=== PATIENT | male | born 1975 | race Caucasian/White ===

== ENCOUNTER 2018-12-27 08:35 | Inpatient (IN) | payer OTHER ==
[2018-12-27 09:24] VITALS: BMI 26.4
--- NOTE | 2018-12-27 10:21 | HP ---
CIWA Score Nausea/Vomitin Muscle Tremors: 2 Anxiety: 2 Agitation: 2 Paroxysmal Sweats: 1-Minimal Palms Moist Orientation: 0-Oriented Tacttile Disturbances: 1-Very Mild Itch/Numbness Auditory Disturbances: 1-Very Mild Visual Disturbances: 0-None Headache: 2-Mild CIWA-Ar Total Score: 13 - Admission Criteria OASAS Guidelines: Admission for Medically Managed Detox: Requires at least one of the followin. CIWA greater than 12 2. Seizures within the past 24 hours 3. Delirium tremens within the past 24 hours 4. Hallucinations within the past 24 hours 5. Acute intervention needed for co occurring medical disorder 6. Acute intervention needed for co occurring psychiatric disorder 7. Severe withdrawal that cannot be handled at a lower level of care (continued vomiting, continued diarrhea, abnormal vital signs) requiring intravenous medication and/or fluids 8. Admission ROS BHS - HPI Chief Complaint: i need help to stop drinking alcohol Allergies/Adverse Reactions: Allergies Allergy/AdvReac Type Severity Reaction Status Date / Time No Known Allergies Allergy Verified 12/27/18 09:14 History of Present Illness: this 43 years old male with alcohol dependence,seeking detox, multiple admissions in detox,last [facility] 04 a9 complete mmtp 70 mgs/day last 6 months last medicated yesterday syncope insomnia 100 mgs po hs fo insomnia seen in [place] last night has iv no significant period nicotine dependence 1/2 pack day,requesting nicotine path and gum replacement plan for out patient program,back to work,aa meeting Exam Limitations: No Limitations - Ebola screening Have you traveled outside of the country in the last 21 days: No Have you had contact with anyone from an Ebola affected area: No - Review of Systems Constitutional: Loss of Appetite, Malaise, Night Sweats, Changes in sleep, Weakness EENT: reports: No Symptoms Reported, Nose Congestion Respiratory: reports: No Symptoms reported GI: reports: Diarrhea, Nausea, Vomiting, Abdominal cramping : reports: No Symptoms Reported Musculoskeletal: reports: Back Pain, Muscle Pain Integumentary: reports: Dryness Neuro: reports: Headache, Tremors Endocrine: reports: No Symptoms Reported Hematology: reports: No Symptoms Reported Psychiatric: reports: No Sypmtoms Reported, Judgement Intact, Mood/Affect Appropiate, Orientated x3 Other Systems: Reviewed and Negative Patient History - Patient Medical History Hx Anemia: No Hx Asthma: No Hx Chronic Obstructive Pulmonary Disease (COPD): No Hx Cancer: No Hx Cardiac Disorders: No Hx Congestive Heart Failure: No Hx Hypertension: No Hx Hypercholesterolemia: No Hx Pacemaker: No HX Cerebrovascular Accident: No Hx Seizures: No Hx Dementia: No Hx Diabetes: No Hx Gastrointestinal Disorders: No Hx Liver Disease: No Hx Genitourinary Disorders: No Hx Sexually Transmitted Disorders: No Hx Renal Disease (ESRD): No Hx Thyroid Disease: No Hx Human Immunodeficiency Virus (HIV): No (last 11/12 negative) Hx Hepatitis C: No Hx Depression: No Hx Suicide Attempt: No Hx Bipolar Disorder: No Hx Schizophrenia: No Other Medical History: no suiidal,no homicidal,insonia - PPD History Previous Implant?: Yes Documented Results: Negative w/o proof Implanted On Prior [facility] Admission?: No PPD to be Administered?: Yes - Smoking Cessation Smoking history: Current every day smoker Have you smoked in the past 12 months: Yes Aproximately how many cigarettes per day: 10 Cigars Per Day: 0 Hx Chewing Tobacco Use: No Initiated information on smoking cessation: Yes 'Breaking Loose' booklet given: 12/27/18 - Substance & Tx. History Hx Alcohol Use: Yes Hx Substance Use: No Substance Use Type: Alcohol Hx Substance Use Treatment: No - Substances abused Alcohol Substance route: Oral Frequency: Daily Amount used: 3 pints of vodka Age of first use: 30 Date of last use: 12/26/18 Family Disease History - Family Disease History Family History: Denies Admission Physical Exam BHS - Vital Signs Vital Signs: Vital Signs - 24 hr 12/27/18 09:16 Temperature 98.1 F Pulse Rate 85 Respiratory 16 Rate Blood Pressure 131/85 - Physical General Appearance: Yes: Moderate Distress, Tremorous, Irritable, Sweating, Anxious HEENTM: Yes: Normal ENT Inspection, CARLOS, Pharynx Normal Respiratory: Yes: Lungs Clear, Normal Breath Sounds, No Respiratory Distress Neck: Yes: Within Normal Limits, Supple, Trachea in good position Breast: Yes: Within Normal Limits Cardiology: Yes: Regular Rate, S1, S2 Abdominal: Yes: Within Normal Limits, Normal Bowel Sounds, Non Tender, Flat, Soft Genitourinary: Yes: Within Normal Limits Back: Yes: Muscle Spasm Musculoskeletal: Yes: full range of Motion, Back pain, Muscle Pain Extremities: Yes: Tremors Neurological: Yes: haul driver II-XII NML intact, Fully Oriented, Alert, Motor Strength 5/5 Integumentary: Yes: Dry Lymphatic: Yes: Within Normal Limits - Diagnostic (1) Alcohol dependence with uncomplicated withdrawal Current Visit: Yes Status: Acute (2) Methadone maintenance therapy patient Current Visit: Yes Status: Acute (3) Syncope Current Visit: Yes Status: Acute (4) Insomnia Current Visit: Yes Status: Acute (5) Nicotine dependence Current Visit: Yes Status: Acute Cleared for Admission S - Detox or Rehab [facility] Level of Care: Medically Managed Detox Regimen/Protocol: Librium Breathalyzer - Breathalyzer Breathalyzer: 0.201 Urine Drug Screen - Test Device Lot number: [id number] Expiration date: 09/23/20 - Control Is test valid?: Yes - Results Drug screen NEGATIVE: No Urine drug screen results: THC-Marijuana, MTD-Methadone Inpatient Rehab Admission - Rehab Decision to Admit Inpatient rehab admission?: No
[2018-12-27] MEDS ORDERED: MELATONIN 5 MG TABLETS PO PRN (10:28)
[2018-12-27] MEDS ORDERED: MAGNESIUM HYDROX 2400MG/30ML ORAL SUSPENSION 30 ML CUP PO PRN (10:28)
[2018-12-27] MEDS ORDERED: MENTHOL/PHENOL 1 EACH UD MM PRN (10:28)
[2018-12-27] MEDS ORDERED: BISMUTH SUBSALICYLATE 524 MG/30 ML UD PO PRN (10:28)
[2018-12-27] MEDS ORDERED: IBUPROFEN 400 MG TABLET (FP) PO PRN (10:28)
[2018-12-27] MEDS ORDERED: MAGNESIUM CITRATE 300 ML BOTTLE PO PRN (10:28)
[2018-12-27] MEDS ORDERED: MAG HYDROX/AL HYDROX/SIMETH 30 ML UNIT-DOSE CUP PO PRN (10:28)
[2018-12-27] MEDS ORDERED: NICOTINE POLACRILEX 2 MG GUM BUC PRN (10:28)
[2018-12-27] MEDS ORDERED: ACETAMINOPHEN 325 MG TABLET (FP) PO PRN ×2 (10:28)
[2018-12-27] MEDS ORDERED: METHADONE HCL 10 MG TABLET PO ONE (10:34)
[2018-12-27] MEDS ORDERED: METHADONE 40 MG, METHADONE 30 MG PO ONE (11:00)
[2018-12-27] MEDS ORDERED: METHADONE HCL 10 MG TABLET ONE (11:17)
[2018-12-27] MEDS ORDERED: METHADONE HCL 40 MG DISPERSABLE TABLET ONE (11:18)
[2018-12-27] MEDS: chlordiazePOXIDE HCL 25 MG CAPSULE PO SCH ×3 (11:22→22:06)
[2018-12-27] MEDS: NICOTINE 21 MG/24 HOURS TOPICAL PATCH TD SCH (11:23)
[2018-12-27 12:05] LABS: ALBUMIN 3.6 g/dl (3.4-5.0); BILIRUBIN,TOTAL 0.9 mg/dL (0.2-1); CALCIUM 8.3 mg/dL (8.5-10.1); CREATININE 0.5 mg/dL (0.55-1.3); POTASSIUM 5.4 mmol/L (3.5-5.1); TOT PROT 6.9 g/dl (6.4-8.2)
[2018-12-27 12:16] LABS: HEMATOCRIT 39.2 % (35.4-49); MCH 32.9 pg (25.7-33.7); MCHC 33.3 g/dl (32.0-35.9); MEAN CELL VOLUME 98.8 fl (80-96); MEAN PLT VOLUME 9.1 fl (7.5-11.1); RBC 3.96 M/mm3 (4.00-5.60); RDW 15.1 % (11.9-15.9)
[2018-12-27 14:02] LABS: PLATELET COUNT 39 K/MM3 (134-434)
[2018-12-27] MEDS: METHOCARBAMOL 500 MG TABLET PO PRN (15:00)
[2018-12-27] MEDS: hydrOXYzine PAMOATE 25 MG CAPSULE (FP) PO PRN (15:00)
[2018-12-27] MEDS: chlordiazePOXIDE HCL 25 MG CAPSULE PO PRN (15:00)
[2018-12-27] MEDS: traZODone HCL 100 MG TABLET (FP) PO SCH (22:06)
[2018-12-27] MEDS: THIAMINE HCL 100 MG TABLET (FP) PO SCH (22:06)
[2018-12-28] MEDS ORDERED: METHADONE HCL 40 MG DISPERSABLE TABLET ONE (04:04)
[2018-12-28] MEDS ORDERED: METHADONE HCL 10 MG TABLET ONE (04:04)
[2018-12-28] MEDS: METHADONE 40 MG, METHADONE 30 MG PO SCH (05:41)
[2018-12-28] MEDS: chlordiazePOXIDE HCL 25 MG CAPSULE PO SCH ×4 (05:42→22:01)
[2018-12-28] MEDS ORDERED: METHADONE HCL 10 MG TABLET PO SCH (06:00)
[2018-12-28] MEDS: PRENATAL VITAMINS W/ FOLIC ACID TABLET (FP) PO SCH (10:14)
[2018-12-28] MEDS: METHOCARBAMOL 500 MG TABLET PO PRN (10:15)
[2018-12-28] MEDS: NICOTINE 21 MG/24 HOURS TOPICAL PATCH TD SCH (10:16)
--- NOTE | 2018-12-28 10:25 | PN ---
S CIWA - CIWA Score Nausea/Vomitin Muscle Tremors: 2 Anxiety: 2 Agitation: 2 Paroxysmal Sweats: 1-Minimal Palms Moist Orientation: 0-Oriented Tacttile Disturbances: 1-Very Mild Itch/Numbness Auditory Disturbances: 1-Very Mild Visual Disturbances: 0-None Headache: 2-Mild CIWA-Ar Total Score: 13 [facility] Progress Note (SOAP) Subjective: alert,irritable,anxious,interrupted sleep,tremor Objective: 12/28/18 10:24 Vital Signs Temperature 97.4 F L 12/28/18 09:22 Pulse Rate 99 H 12/28/18 09:22 Respiratory Rate 18 12/28/18 09:22 Blood Pressure 138/88 12/28/18 09:22 O2 Sat by Pulse Oximetry (%) Laboratory Last Values WBC 4.0 K/mm3 (4.0-10.0) 12/27/18 10:45 RBC 3.96 M/mm3 (4.00-5.60) L 12/27/18 10:45 Hgb 13.0 GM/dL (11.7-16.9) 12/27/18 10:45 Hct 39.2 % (35.4-49) 12/27/18 10:45 MCV 98.8 fl (80-96) H 12/27/18 10:45 MCH 32.9 pg (25.7-33.7) 12/27/18 10:45 MCHC 33.3 g/dl (32.0-35.9) 12/27/18 10:45 RDW 15.1 % (11.9-15.9) 12/27/18 10:45 Plt Count 39 K/MM3 (134-434) L 12/27/18 10:45 MPV 9.1 fl (7.5-11.1) 12/27/18 10:45 Sodium 139 mmol/L (136-145) 12/27/18 10:45 Potassium 5.4 mmol/L (3.5-5.1) H 12/27/18 10:45 Chloride 104 mmol/L (98-107) 12/27/18 10:45 Carbon Dioxide 25 mmol/L (21-32) 12/27/18 10:45 Anion Gap 11 MMOL/L (8-16) 12/27/18 10:45 BUN 14 mg/dL (7-18) 12/27/18 10:45 Creatinine 0.5 mg/dL (0.55-1.3) L 12/27/18 10:45 Est GFR (CKD-EPI)AfAm 152.75 12/27/18 10:45 Est GFR (CKD-EPI)NonAf 131.80 12/27/18 10:45 Random Glucose 85 mg/dL (74-106) 12/27/18 10:45 Calcium 8.3 mg/dL (8.5-10.1) L 12/27/18 10:45 Total Bilirubin 0.9 mg/dL (0.2-1) 12/27/18 10:45 AST 133 U/L (15-37) H 12/27/18 10:45 ALT 59 U/L (13-61) 12/27/18 10:45 Alkaline Phosphatase 179 U/L (45-117) H 12/27/18 10:45 Total Protein 6.9 g/dl (6.4-8.2) 12/27/18 10:45 Albumin 3.6 g/dl (3.4-5.0) 12/27/18 10:45 RPR Titer Nonreactive (NONREACTIVE) 12/27/18 10:45 Assessment: 12/28/18 10:25 withdrawal symptom Plan: continue detox
--- NOTE | 2018-12-28 12:05 | EKG ---
Test Reason : Blood Pressure : / mmHG Vent. Rate : 065 BPM Atrial Rate : 065 BPM P-R Int : 152 ms QRS Dur : 096 ms QT Int : 468 ms P-R-T Axes : 267 026 041 degrees QTc Int : 486 ms UNUSUAL P AXIS, POSSIBLE ECTOPIC ATRIAL RHYTHM POSSIBLE ANTERIOR INFARCT , AGE UNDETERMINED ABNORMAL ECG NO PREVIOUS ECGS AVAILABLE Confirmed by Manny Rudolph MD ([id number]) on 12/28/2018 12:04:31 PM Referred By: Confirmed By:Manny Rudolph MD
[2018-12-28] MEDS: chlordiazePOXIDE HCL 25 MG CAPSULE PO PRN ×2 (14:27→18:45)
[2018-12-28] MEDS: hydrOXYzine PAMOATE 25 MG CAPSULE (FP) PO PRN (18:44)
[2018-12-28] MEDS: traZODone HCL 100 MG TABLET (FP) PO SCH (22:01)
[2018-12-28] MEDS: THIAMINE HCL 100 MG TABLET (FP) PO SCH (22:02)
[2018-12-29] MEDS ORDERED: METHADONE HCL 40 MG DISPERSABLE TABLET ONE (05:54)
[2018-12-29] MEDS ORDERED: METHADONE HCL 10 MG TABLET ONE (05:54)
[2018-12-29] MEDS: METHADONE 40 MG, METHADONE 30 MG PO SCH (06:33)
[2018-12-29] MEDS: chlordiazePOXIDE HCL 25 MG CAPSULE PO SCH (06:36)
[2018-12-29 09:26] VITALS: BP 128/82; PULSE 112; TEMP 98.9
[2018-12-29] MEDS: NICOTINE 21 MG/24 HOURS TOPICAL PATCH TD SCH (10:26)
[2018-12-29] MEDS: PRENATAL VITAMINS W/ FOLIC ACID TABLET (FP) PO SCH (10:27)
[2018-12-29] MEDS: chlordiazePOXIDE HCL 25 MG CAPSULE PO PRN (10:30)
[2018-12-29] MEDS ORDERED: chlordiazePOXIDE HCL 10 MG CAPSULE PO PRN (11:00)
[2018-12-29] MEDS ORDERED: chlordiazePOXIDE HCL 10 MG CAPSULE PO SCH (11:00)
--- NOTE | 2018-12-29 16:43 | PN ---
[facility] CIWA - CIWA Score Nausea/Vomitin-No Nausea/No Vomiting Muscle Tremors: 2 Anxiety: 4-Mod. Anxious/Guarded Agitation: 2 Paroxysmal Sweats: 3 Orientation: 0-Oriented Tacttile Disturbances: 2-Mild Itch/Numbness/Burn Auditory Disturbances: 0-None Visual Disturbances: 0-None Headache: 0-None Present CIWA-Ar Total Score: 13 [facility] Progress Note (SOAP) Subjective: Anxious, Tremors, Sweating. Objective: PATIENT A & O X 3, OBSERVED AMBULATING ON UNIT UNASSISTED. IN NO ACUTE DISTRESS. 12/29/18 16:39 Vital Signs Temperature 98.9 F 12/29/18 09:25 Pulse Rate 112 H 12/29/18 09:25 Respiratory Rate 18 12/29/18 09:25 Blood Pressure 128/82 12/29/18 09:25 O2 Sat by Pulse Oximetry (%) Laboratory Tests 12/27/18 12/27/18 12/27/18 10:45 10:45 10:45 WBC 4.0 RBC 3.96 L Hgb 13.0 Hct 39.2 MCV 98.8 H MCH 32.9 MCHC 33.3 RDW 15.1 Plt Count 39 L MPV 9.1 Sodium 139 Potassium 5.4 H Chloride 104 Carbon Dioxide 25 Anion Gap 11 BUN 14 Creatinine 0.5 L Est GFR (CKD-EPI)AfAm 152.75 Est GFR (CKD-EPI)NonAf 131.80 Random Glucose 85 Calcium 8.3 L Total Bilirubin 0.9 AST 133 H ALT 59 Alkaline Phosphatase 179 H Total Protein 6.9 Albumin 3.6 RPR Titer Nonreactive LABS NOTED. Assessment: 12/29/18 16:39 WITHDRAWAL SYMPTOMS. HYPERKALEMIA. ELEVATED AST AND ALKALINE PHOSPHATASE LEVELS. THROMBOCYTOPENIA. 12/29/18 16:41 Plan: CONTINUE DETOX. K, AST, AN AP LEVELS WOULD HAVE BEEN RECHECKED. HOWEVER, PATIENT ELECTED TO LEAVE DETOX UNIT AGAINST MEDICAL ADVICE DUE TO FAMILY EMERGENCY. SEE FOLLOWING [facility] DETOX DISCHARGE SUMMARY.
--- NOTE | 2018-12-29 16:49 | DS ---
[facility] Detox Discharge Summary Admission Date: 12/27/18 Discharge Date: 12/29/18 - History Present History: Alcohol Dependence, Opioid Dependence, MMTP Additional Comments: PATIENT REPORTS A FAMILY EMERGENCY AND THAT HE DOES NOT WISH TO REMAIN TO COMPLETE DETOX REGIMEN. RISKS OF LEAVING DETOX UNIT AGAINST MEDICAL ADVICE AND PRIOR TO COMPLETION OF DETOX REGIMEN EXPLAINED TO PATIENT. PATIENT ADVISED TO GO IMMEDIATELY TO NEAREST ER SHOULD ANY INTOLERABLE WITHDRAWAL / DETOX SYMPTOMS DEVELOP AT ANY TIME. PATIENT ADVISED TO FOLLOW-UP WITH [facility] WORKROOM CLERK AFTER DISCHARGE FROM DETOX FOR GENERAL MEDICAL ASSESSMENT AND LOW PLATELET LEVEL, FOR ELEVATED POTASSIUM LEVEL AND FOR ELEVATED LIVER ENZYMES NOTED ON DETOX ADMISSION LABORATORY ASSESSMENT. COPIES OF RESULTS OF ALL LABS DRAWN WHILE ADMITTED FOR DETOX GIVEN TO PATIENT AT TIME OF DISCHARGE FROM DETOX UNIT. PATIENT VERBALIZED UNDERSTANDING OF ALL INFORMATION / RECOMMENDATIONS PRESENTED TO HIM PRIOR TO DEPARTURE FROM DETOX UNIT. PATIENT LEFT DETOX UNIT IN STABLE MEDICAL CONDITION. Pertinent Past History: M.M.T.P., History Of Syncope, Insomnia, Nicotine Dependence, Hyperkalemia ( Noted On Detox Admission Laboratory Assessment), Thrombocytopenia (Noted On Detox Admission Laboratory Assessment), Elevated AST and Alkaline Phosphatase Levels (Noted On Detox Admission Laboratory Assessment). - Physical Exam Results Vital Signs: Vital Signs Temperature 98.9 F 12/29/18 09:25 Pulse Rate 112 H 12/29/18 09:25 Respiratory Rate 18 12/29/18 09:25 Blood Pressure 128/82 12/29/18 09:25 O2 Sat by Pulse Oximetry (%) Pertinent Admission Physical Exam Findings: WITHDRAWAL SYMPTOMS. Laboratory Tests 12/27/18 12/27/18 12/27/18 10:45 10:45 10:45 WBC 4.0 RBC 3.96 L Hgb 13.0 Hct 39.2 MCV 98.8 H MCH 32.9 MCHC 33.3 RDW 15.1 Plt Count 39 L MPV 9.1 Sodium 139 Potassium 5.4 H Chloride 104 Carbon Dioxide 25 Anion Gap 11 BUN 14 Creatinine 0.5 L Est GFR (CKD-EPI)AfAm 152.75 Est GFR (CKD-EPI)NonAf 131.80 Random Glucose 85 Calcium 8.3 L Total Bilirubin 0.9 AST 133 H ALT 59 Alkaline Phosphatase 179 H Total Protein 6.9 Albumin 3.6 RPR Titer Nonreactive LABS NOTED. - Treatment Hospital Course: Detox Protocol Followed, Detoxed Safely - Diagnosis (1) Elevated alkaline phosphatase level Status: Acute (2) Elevated aspartate aminotransferase level Status: Acute (3) Hyperkalemia Status: Acute (4) Thrombocytopenia Status: Acute (5) Alcohol dependence with uncomplicated withdrawal Status: Acute (6) Methadone maintenance therapy patient Status: Acute (7) Syncope Status: Acute Qualifiers: Syncope type: unspecified Qualified Code(s): R55 - Syncope and collapse (8) Insomnia Status: Acute Qualifiers: Insomnia type: unspecified Qualified Code(s): G47.00 - Insomnia, unspecified (9) Nicotine dependence Status: Acute Qualifiers: Nicotine product type: cigarettes Substance use status: uncomplicated Qualified Code(s): F17.210 - Nicotine dependence, cigarettes, uncomplicated - AMA Did Patient Leave Against Medical Advice: Yes (PT. HAD FAMILY EMERGENCY AND DID NOT WISH TO REMAIN TO COMPLETE DETOX.)
[2018-12-30] MEDS ORDERED: chlordiazePOXIDE HCL 10 MG CAPSULE PO SCH (11:00)
== END 2018-12-29 11:32 | disposition left against medical advice (07) | DRG 770 ==
LOC: YASAS 08:35 → Y6N 10:25
PROVIDERS: ADMIT Surgery; ATTEND Surgery
PROC: HZ2ZZZZ Detoxification Services for Substance Abuse Treatment (ICD-10-PCS; principal; 2018-12-27)
DX: F10.230 Alcohol dependence with withdrawal, uncomplicated (principal); F11.20 Opioid dependence, uncomplicated; F17.210 Nicotine dependence, cigarettes, uncomplicated; G47.00 Insomnia, unspecified; R74.8 Abnormal levels of other serum enzymes; R74.0 Nonspecific elevation of levels of transaminase and lactic acid dehydrogenase [LDH]; E87.6 Hypokalemia; D69.6 Thrombocytopenia, unspecified
CPT/HCPCS: 36415; 80053; 85027; 86593; 93005; 93010